=== PATIENT | female | born 1980 | race Caucasian/White ===

== ENCOUNTER 2021-07-15 14:26 | Emergency (ER) | payer OTHER, SELFPAY ==
--- NOTE | ~2021-07-15 | CT_ITS ---
EXAMINATION: CT abdomen pelvis w con EXAM DATE: 07/15/2021 16:20 INDICATION: Epigastric pain . TECHNIQUE: Spiral CT of the abdomen and pelvis was performed following intravenous injection of 100 m L Omnipaque 350. Axial, coronal and sagittal images of the abdomen and pelvis were reviewed. The do se-length product (DLP) for this examination was 399.40 mGy-cm. The exposure was tailored according to patient size (auto mA exposure control), and iterative reconstruction (ASIR) was used as additiona l dose reduction technique. There is no prior study for comparison. FINDINGS: The liver, spleen, adrenal glands and pancreas are unremarkable. Gallbladder is unremarkab le. No biliary obstruction. Portal and splenic veins are patent. Kidneys enhance symmetrically. T here is no hydronephrosis. The uterus is anteverted and morphologically normal. The bladder is un remarkable. There is no retroperitoneal or pelvic lymphadenopathy. There is mild scattered arterio sclerotic disease. The appendix is normal. The stomach and small bowel are unremarkable. There is expected amount of c olonic stool. No free intraperitoneal gas. The heart is normal in size. There are no pericardial or pleural effusions. The lung bases are unremarkable. There are no osteoblastic or osteolytic les ions identified. IMPRESSION: 1. No acute intra-abdominal findings. Reviewed, dictated and finalized at location G.
[2021-07-15 14:42] VITALS: BP 140/95; PULSE 91; RESP 18; TEMP 36.1; O2SAT 100
[2021-07-15 15:00] LABS: Glucose Point of Care 149 mg/dl (65-105)
[2021-07-15] MEDS: ONDANSETRON INJ 4 MG/2 ML VIAL 8 MG (15:04)
[2021-07-15] MEDS: SODIUM CHLORIDE 0.9% IV 2,000 ML 999 ML (15:04)
[2021-07-15] MEDS: HYDROmorphone HCL INJ (*CRX) 1 MG/ML SYR 0.5 MG IV PUSH ×2 (15:21→16:59)
--- NOTE | 2021-07-15 15:21 | ED.ABDPAIN ---
HPI - Abdominal Pain General Chief Complaint: Abdominal Pain Stated Complaint: abd pain Time Seen by Provider: 07/15/21 15:03 Source: patient and old records reviewed Mode of arrival: ambulatory Limitations: no limitations History of Present Illness HPI narrative: Patient is 40 years old white female drove herself to the emergency room because of severe pain in the epigastric area associated with nausea dry heaves and vomiting. Patient feels like she needs to have a bowel movement, went to the bathroom, sat on the toilet, started feeling lightheadedness, dizziness, diaphoresis, nausea and vomiting. Patient does not take medication at home except for anxiety and depression. Denies smoking, drinking or using drugs. Related Data Allergies Allergy/AdvReac Type Severity Reaction Status Date / Time No Known Allergies Allergy Unverified 05/25/18 16:10 Review of Systems Review of Systems: CONSTITUTIONAL: Denies fever, chills, or sweats. EYES: Denies visual changes, redness, or discharge. ENT: Denies rhinorrhea, congestion, sore throat, or otalgia. CARDIOVASCULAR: Denies chest pain, palpitations, or edema. RESPIRATORY: Denies cough or dyspnea. GASTROINTESTINAL: Denies abdominal pain, nausea, vomiting, or diarrhea. GENITOURINARY: Denies dysuria or hematuria. SKIN: Denies rash or itching. MUSCULOSKELETAL: Denies back pain, joint pain, or myalgia. NEUROLOGIC: Denies headache, numbness, or weakness. PSYCHIATRIC: Denies anxiety or depression. Exam Narrative: General appearance: Well-developed, well-nourished, restless, in pain with violent dry heave Skin: Diaphoretic r Head: Normocephalic, nontraumatic Eyes: Clear conjunctiva ENT: Oropharynx normal, ears normal, nose normal Neck: Supple, nontender Chest and respiratory: Airway patent, no respiratory distress, no accessory muscle use Heart: Regular rate/rhythm Abdomen: Soft, moderate tenderness right lower quadrant and severe tenderness epigastric area and right upper quadrant, no organomegaly, quiet bowel sounds Vascular: Normal peripheral pulses, normal capillary refill. Musculoskeletal: Normal range of motion, nontender back Neurologic: Alert and oriented ?3, AUTO CLAIM REPRESENTATIVE is normal as tested, no gross motor deficit Course Vital Signs Vital signs: Vital Signs Temperature 36.1 C L 07/15/21 14:42 Pulse Rate 91 07/15/21 14:42 Respiratory Rate 18 07/15/21 14:42 Blood Pressure 140/95 H 07/15/21 14:42 Pulse Oximetry 100 07/15/21 14:42 Temperature 36.1 C L 07/15/21 14:42 Pulse Rate 91 07/15/21 14:42 Respiratory Rate 18 07/15/21 14:42 Blood Pressure 140/95 H 07/15/21 14:42 Pulse Oximetry 100 07/15/21 14:42 MDM - Abdominal Pain Lab Data Result diagrams: 07/15/21 15:14 07/15/21 15:14 Labs: Lab Results 07/15/21 07/15/21 07/15/21 Range/Units 14:57 15:14 15:14 WBC 7.3 (4.5-10.0) K/mm3 RBC 4.74 (4.2-5.4) M/mm3 Hgb 14.8 (12.0-15.0) g/dL Hct 43.9 (37.0-47.0) % MCV 92.6 (80-100) fl MCH 31.2 (26-34) pg MCHC 33.7 (32-36) g/dl RDW 12.0 (11.5-14.5) % Plt Count 241 (150-375) k/mm3 MPV 12.2 H (7.4-10.4) fl Immature Gran % (Auto) 0.1 (0-0.5) % Neut % (Auto) 61.4 (45.5-73.1) % Lymph % (Auto) 30.2 (18.3-44.2) % Yancey % (Auto) 7.5 (2.6-8.5) % Eos % (Auto) 0.5 (0-4.4) % Baso % (Auto) 0.3 (0.2-1.2) % Lymph # (Auto) 2.21 (0.9-3.2) K/mm3 Yancey # (Auto) 0.6 (0.1-0.6) K/mm3 Eos # (Auto) 0.0 (0-0.3) K/mm3 Baso # (Auto) 0.0 (0.0-0.1) K/mm3 Abs Immat Gran (auto) 0.01 (0.00-0.031) K/mm3 Absolute Neuts (auto) 4.5 (1.3-6.7) K/mm3 Absolute Nucleated RBC 0.0 (0.
[2021-07-15] MEDS: diphenhydrAMINE HCl INJ 50 MG/ML VIAL 25 MG IV PUSH (15:24)
[2021-07-15] MEDS: METOCLOPRAMIDE HCL INJ 10 MG/2 ML VIAL IV PUSH (15:24)
--- NOTE | 2021-07-15 15:31 | PC.NURSE ---
pt appears more comfortable at this time. States she has relief of s/s.
[2021-07-15 15:36] LABS: Basophils Percent Auto 0.3 % (0.2-1.2); Eosinophils Percent Auto 0.5 % (0-4.4); Hematocrit 43.9 % (37.0-47.0); Hemoglobin 14.8 g/dL (12.0-15.0); Immature Granulocyte Absolute 0.01 K/mm3 (0.00-0.031); Immature Granulocyte Percent A 0.1 % (0-0.5); Lymphocytes Absolute Auto 2.21 K/mm3 (0.9-3.2); Lymphocytes Percent Auto 30.2 % (18.3-44.2); Mean Corpuscular HGB Conc 33.7 g/dl (32-36); Mean Corpuscular Hemoglobin 31.2 pg (26-34); Mean Corpuscular Volume 92.6 fl (80-100); Mean Platelet Volume 12.2 fl (7.4-10.4); Monocytes Absolute Auto 0.6 K/mm3 (0.1-0.6); Monocytes Percent Auto 7.5 % (2.6-8.5); Neutrophils Absolute Auto 4.5 K/mm3 (1.3-6.7); Neutrophils Percent Auto 61.4 % (45.5-73.1); Platelet Count Result 241 k/mm3 (150-375); Red Blood Count 4.74 M/mm3 (4.2-5.4); White Blood Count 7.3 K/mm3 (4.5-10.0)
[2021-07-15 15:49] LABS: Alanine Aminotransferase 23 U/L (4-35); Albumin Level 4.8 g/dL (3.5-5.1); Alkaline Phosphatase 52 U/L (38-126); Anion Gap 14 mmol/L (8-16); Aspartate Amino Transferase 29 U/L (14-36); Bilirubin,Total 0.4 mg/dL (0.2-1.3); Blood Urea Nitrogen 9 mg/dL (7-17); Calcium 9.5 mg/dL (8.4-10.2); Carbon Dioxide 17 mmol/L (22-30); Chloride 109 mmol/L (98-107); Estimated CRCL calculation 78 ml/min; Estimated Glomerular Filt Rate > 60; Glucose 165 mg/dL (65-110); Lipase 238 U/L (23-300); Potassium 3.9 mmol/L (3.4-5.0); Sodium 140 mmol/L (137-145)
[2021-07-15 16:09] LABS: SPREG INTERNAL CONTROL Positive; Serum Qual hCG Negative
[2021-07-15 17:04] VITALS: BP 158/88; PULSE 74; RESP 18; O2SAT 98
[2021-07-15 17:28] LABS: Add Urine Microscopic? YES; Appearance Urine Clear (Clear); Bilirubin Urine Negative (Negative); Blood Urine Negative (Negative); Color Urine Straw (Yellow); Glucose Urine UA Negative (Negative); Ketones Urine Trace mg/dL (Negative); Leukocyte Esterase Ur Negative LEU/UL (Negative); Mucus Urine Rare /lpf; Nitrate Urine Negative (Negative); Protein Urine Negative (Negative); RBC Urine 0-2 /hpf (0-2); Squamous Epithelial Cell Urine Few /hpf (Few); Urobilinogen Urine Negative mg/dL (<2.0); WBC Urine 0-3 /hpf
[2021-07-15 17:29] LABS: Specific Grav Ur 1.035 (1.001-1.035)
[2021-07-15 17:30] VITALS: BP 166/96; PULSE 76; RESP 20; O2SAT 99
[2021-07-15 17:42] VITALS: BP 132/78; PULSE 78; RESP 18; O2SAT 98
== END 2021-07-15 17:30 | disposition home or self-care (01) ==
PROVIDERS: Emergency Provider Emergency Medicine; PCP Internal Medicine
DX: R10.13 Epigastric pain (principal)
CPT/HCPCS: 36415; 74177; 80053; 81001; 82948; 83690; 84703; 85025; 96361; 96374; 96375; 96376; 99285; J1170; J1200; J2405; J2765; J7030; Q9967

== ENCOUNTER 2021-07-15 22:34 | Emergency (ER) | payer OTHER, SELFPAY ==
[2021-07-15 22:37] VITALS: BP 114/77; PULSE 97; RESP 18; TEMP 36.8; O2SAT 97
--- NOTE | 2021-07-15 22:46 | PC.NURSE ---
pt left before being seen by provider at this time. pt states we're gonna just go now.
== END 2021-07-15 23:03 | disposition left against medical advice (07) ==
LOC: ANHED 22:50
PROVIDERS: PCP Internal Medicine
DX: R10.10 Upper abdominal pain, unspecified (principal)
CPT/HCPCS: 99199

== ENCOUNTER 2023-05-13 12:08 | Emergency (ER) | payer OTHER, SELFPAY ==
--- NOTE | ~2023-05-13 | US_ITS ---
EXAMINATION: US pelvic complete DATE: 05/13/2023 16:17 INDICATION: Right lower quadrant pain TECHNIQUE: Multiple transabdominal and endovaginal sonographic images of the pelvis were obtained. COMPARISON: CT from today FINDINGS: The uterus is surgically absent. The right ovary measures 2.2 x 1.8 x 2.0 cm. The left ovar y measures 2.4 x 1.2 x 1.6 cm. There is normal vascular flow in the ovaries. There is no free fluid i n the pelvis. IMPRESSION: 1. No sonographic correlate for the patient's symptoms. Reviewed, dictated and finalized at location F. TECHNIC ASSEMBLER
--- NOTE | ~2023-05-13 | CT_ITS ---
EXAMINATION: CT abdomen pelvis w con DATE: 05/13/2023 15:43 INDICATION: Right lower quadrant abdominal pain and dyspareunia TECHNIQUE: Computed tomography (CT) of the abdomen and pelvis was performed with 100 mL Omnipaque-350 intravenous contrast. Automated exposure control and iterative reconstruction technique were employe d. The dose-length product was 294.73 mGy-cm. COMPARISON: 07/15/2021 FINDINGS: Lung bases are clear. Heart size is normal. No pericardial or pleural effusion. Liver, gallbladder, s pleen, pancreas, bilateral adrenal glands and kidneys are normal. Bladder is normal. The uterus is no t identified and has likely been surgically resected. There is a small amount of free intraperitoneal gas scattered throughout the nondependent abdomen. There is additional small amount of extraluminal gas with dependently in the deep pelvis situated in the fat between the vaginal cuff and the sigmoid colon which suggests this is the origin of the gas most likely related to a perforated sigmoid divert iculitis. There is a minimal amount of stranding in the adjacent fat and a minimal amount of nonlocul ated free fluid in the deep pelvis. No abscess. No bowel obstruction. Normal appendix. No pathologica lly enlarged abdominal or pelvic lymphadenopathy. Bones are unremarkable. IMPRESSION: 1. Small amount of free intraperitoneal gas scattered throughout the abdomen and pelvis with distribu tion suggesting an origin in the deep pelvis likely related to sigmoid diverticulitis. No abscess. Reviewed, dictated and finalized at location A. KAY MACHINE OPERATOR IMPRESSION: 1. Small amount of free intraperitoneal gas scattered throughout the abdomen an d pelvis with distribution suggesting an origin in the deep pelvis likely relat ed to sigmoid diverticulitis. No abscess.
[2023-05-13 12:11] VITALS: BP 151/79; PULSE 74; RESP 20; TEMP 36.6; O2SAT 100
[2023-05-13 14:40] VITALS: BP 116/64; PULSE 88; RESP 18; TEMP 36.5; O2SAT 98
--- NOTE | 2023-05-13 14:52 | ECG_ITS ---
Measurements Intervals [place] Rate: 84 P: -32 ID: [id number] QRS: 73 QRSD: 95 T: 27 QT: 393 QTc: 465 Interpretive Statements SINUS RHYTHM BASELINE ARTIFACT- I, III, AVR, AVL, AVF NORMAL ECG NO PREVIOUS ECG AVAILABLE FOR COMPARISON Electronically Signed On 05-13-2023 14:57:54 SEXUAL ASSAULT SOCIAL WORKER by Honorio Adams D.O.
--- NOTE | 2023-05-13 14:54 | PC.NURSE ---
1435 Pt called out with intense pain, heart racing, nausea and vomiting. VS and EKG obtained, IV access and blood drawn. Dr. Huerta notified of pt condition and recent change in pain. VO received.
[2023-05-13 14:57] LABS: Basophils Percent Auto 0.1 % (0.2-1.2); Hematocrit 43.6 % (37.0-47.0); Hemoglobin 14.9 g/dL (12.0-15.0); Immature Granulocyte Absolute 0.03 K/mm3 (0.00-0.031); Immature Granulocyte Percent A 0.2 % (0-0.5); Lymphocytes Absolute Auto 1.08 K/mm3 (0.9-3.2); Lymphocytes Percent Auto 7.7 % (18.3-44.2); Mean Corpuscular HGB Conc 34.2 g/dl (32-36); Mean Corpuscular Hemoglobin 30.9 pg (26-34); Mean Corpuscular Volume 90.5 fl (80-100); Mean Platelet Volume 11.1 fl (7.4-10.4); Monocytes Absolute Auto 0.7 K/mm3 (0.1-0.6); Neutrophils Absolute Auto 12.2 K/mm3 (1.3-6.7); Platelet Count Result 247 k/mm3 (150-375); Red Blood Count 4.82 M/mm3 (4.2-5.4); Red Cell Distribution Width 11.8 % (11.5-14.5)
[2023-05-13] MEDS: SODIUM CHLORIDE 0.9% IV 1,000 ML 999 ML IV CONT (15:02)
[2023-05-13] MEDS: MORPHINE SULFATE (*CRX) 4 MG/ML INJ IV PUSH (15:03)
[2023-05-13] MEDS: ONDANSETRON INJ 4 MG/2 ML VIAL IV PUSH (15:03)
[2023-05-13 15:09] LABS: Alanine Aminotransferase 25 U/L (6-35); Albumin Level 4.5 g/dL (3.5-5.1); Alkaline Phosphatase 72 U/L (38-126); Anion Gap 13 mmol/L (8-16); Aspartate Amino Transferase 30 U/L (14-36); Bilirubin,Total 0.5 mg/dL (0.2-1.3); Blood Urea Nitrogen 14 mg/dL (7-17); Calcium 9.3 mg/dL (8.4-10.2); Carbon Dioxide 21 mmol/L (22-30); Chloride 105 mmol/L (98-107); Estimated CRCL calculation 73 ml/min; Estimated Glomerular Filt Rate > 60; Glucose 136 mg/dL (65-110); Potassium 3.6 mmol/L (3.4-5.0); Sodium 139 mmol/L (137-145)
--- NOTE | 2023-05-13 15:24 | ED.GENADULT ---
HPI - General Adult General Chief complaint: Abdominal Pain Stated complaint: abd pain after intercourse/vaginal bleeding Time Seen by Provider: 05/13/23 15:03 Source: patient Mode of arrival: ambulatory Limitations: no limitations History of Present Illness HPI narrative: This is a 42-year-old female who presents to the ED with chief complaint of right lower abdominal pain beginning earlier this morning. Reports that she had intercourse around 11:00 a.m. and subsequently had vaginal bleeding. Reports pain during intercourse. After that she started to have the abdominal / groin pain. Reports vomiting several times as well. She states that she had a laparoscopic hysterectomy in January and is unsure if this is related today. She reports that she has the shakes currently But is unsure of fevers. Patient states she was feeling fine prior to this event today. Denies back pain, flank pain, urinary symptoms, problems with bowel movements, chest pain or shortness of breath. Denies any concern for STD. Related Data Allergies Allergy/AdvReac Type Severity Reaction Status Date / Time No Known Allergies Allergy Verified 05/13/23 12:09 Review of Systems Review of Systems: All systems as dictated in HPI Exam Narrative: GENERAL: Well-appearing, well-nourished, and in no acute distress. HEAD: Normocephalic, atraumatic. EYES: PERRLA and EOMI. ENT: Nares clear, no rhinorrhea or epistaxis. Mucous membranes moist. Oropharynx without tonsillar hypertrophy exudate or other lesions. NECK: Supple. No adenopathy or masses. CHEST: No respiratory distress. Clear to auscultation. No wheezes rales or rhonchi HEART: Regular rate and rhythm. No murmur heard. Normal peripheral pulses. ABDOMEN: Generalized tenderness present. No flank tenderness bilaterally. Soft, nondistended, normal active bowel sounds. MSK: Normal range of motion. No edema. SKIN: Warm, dry, no rash. NEURO: Alert and oriented x3. No focal deficits. PSYCH: Normal mood and affect. Course Course Emergency Course: Consult general surgery, Dr. Lazo: he is agreeable to consult if she is admitted for diverticulitis. He is suspicious that there may be a possible vaginal cuff injury and would like me to speak with OB. Consult OBGYN ([facility]): they recommend to do a pelvic exam to check for any Defect in the vaginal wall. If there is a defect in 1 week here take her they will be happy to take care of the patient. Re-evaluated the patient. Pelvic exam performed with female nurse tech charter boat captain present. In no defect in the vaginal wall seen on speculum exam. No defect palpated. No blood visualized. No discharge. Low concern for vaginal cuff injury. Vital Signs Vital signs: Vital Signs Temperature 98 F 05/13/23 12:11 Pulse Rate 74 05/13/23 12:11 Respiratory Rate 20 05/13/23 12:11 Blood Pressure 151/79 H 05/13/23 12:11 Pulse Oximetry 100 05/13/23 12:11 Oxygen Delivery Room Air 05/13/23 12:11 Temperature 97.6 F 05/13/23 17:51 Pulse Rate 90 05/13/23 17:51 Respiratory Rate 16 05/13/23 17:51 Blood Pressure 126/58 L 05/13/23 17:51 Pulse Oximetry 100 05/13/23 17:51 Oxygen Delivery Room Air 05/13/23 12:11 Medical Decision Making [facility] Narrative Medical decision making narrative: This is a 42-year-old female who presents to the ED with chief complaint of right lower quadrant abdominal pain that started shortly after sexual intercourse. She did have hysterectomy 3 months ago. Vitals are normal. Exam shows right lower quadrant tenderness. Pelvic exam reveals a well-appearing vaginal wall With no evidence of any defect or bleeding. Lab work shows of slightly elevated white count of 14. CMP unremarkable. Urinalysis shows slight dehydration but otherwise normal. Pelvic ultrasound is normal. CT abdomen and pelvis with IV contrast:1. Small amount of free intraperitoneal gas scattered throughout the abdome
[2023-05-13] MEDS: METOCLOPRAMIDE HCL INJ 10 MG/2 ML VIAL IV PUSH (16:30)
[2023-05-13] MEDS: metroNIDAZOLE 500 MG/ISO 100ML 500 MG/100 ML BAG 100 MG IVPB (17:02)
[2023-05-13] MEDS: PROMETHAZINE HCL 25 MG/ML AMPUL 12.5 MG IV PUSH (17:02)
[2023-05-13 17:13] LABS: Appearance Urine Clear (Clear); Bilirubin Urine Negative (Negative); Blood Urine Negative (Negative); Color Urine Yellow (Yellow); Glucose Urine UA Negative (Negative); Ketones Urine 1+ mg/dL (Negative); Leukocyte Esterase Ur Negative LEU/UL (Negative); Nitrate Urine Negative (Negative); Protein Urine Negative (Negative); Urobilinogen Urine 0.2 mg/dL (<2.0); pH Urine 8.5 (5.0-9.0)
[2023-05-13 17:14] LABS: Add Urine Microscopic? NO; Specific Grav Ur 1.047 (1.001-1.035)
[2023-05-13] MEDS: diphenhydrAMINE HCl INJ 50 MG/ML VIAL 25 MG IV PUSH (17:50)
[2023-05-13 17:51] VITALS: BP 126/58; PULSE 90; RESP 16; TEMP 36.4; O2SAT 100
== END 2023-05-13 19:34 | disposition home or self-care (01) ==
PROVIDERS: Emergency Medicine; Emergency Provider Physician Assistant; PCP Internal Medicine
DX: K57.32 Diverticulitis of large intestine without perforation or abscess without bleeding (principal)
CPT/HCPCS: 36415; 74177; 76856; 80053; 81003; 85025; 86850; 86900; 86901; 93005; 96361; 96365; 96368; 96375; 99284; 99285; J0696; J1200; J1836; J2270; J2405; J2550; J2765; J7030; Q9967

== ENCOUNTER 2023-06-12 05:40 | Emergency (ER) | payer OTHER, SELFPAY ==
[2023-06-12] VITALS (29 sets, daily range): BP systolic 103–185; BP diastolic 50–164; PULSE 84–106; RESP 12–27; TEMP 36.6–37.2; O2SAT 95–100
--- NOTE | ~2023-06-12 | CT_ITS ---
EXAMINATION: CTA abdomen pelvis DATE: 06/12/2023 07:11 INDICATION: Abdominal pain TECHNIQUE: Computed tomographic angiography (CTA) of the abdomen and pelvis was performed with 100 mL Omnipaque-350 intravenous contrast. Additional 3D reconstructions utilizing rotating maximum intensi ty projection (MIP) were performed. Automated exposure control and iterative reconstruction technique were employed. The dose-length product was 325.39 mGy-cm. COMPARISON: 05/13/2023 FINDINGS: Lung bases are clear. Heart size is normal. No pericardial or pleural effusion. Liver, gallbladder, s pleen, pancreas, bilateral adrenal glands and kidneys are normal. Bowels including the appendix are n ormal. Prominent distention of the fluid-filled stomach. Bladder is normal. The uterus is not identif ied and has likely been surgically resected. No abscess or free intraperitoneal gas or fluid. No path ologically enlarged or pelvic lymphadenopathy. Abdominal aorta and bilateral iliac arteries are jairo l in caliber with small amount of nonhemodynamically significant atherosclerotic plaque in the infrar enal aorta. No dissection. Normal anatomic variant separate origins of the splenic and common hepatic arteries arising directly from the aorta. Bones are unremarkable. IMPRESSION: 1. Atypically large amount of fluid in the stomach. Correlate clinically. No other acute intra-abdomi nal/pelvic process. Reviewed, dictated and finalized at location A. SIOLOGIST IMPRESSION: 1. Atypically large amount of fluid in the stomach. Correlate clinically. No ot her acute intra-abdominal/pelvic process.
--- NOTE | 2023-06-12 05:56 | ECG_ITS ---
Measurements Intervals [place] Rate: 95 P: -23 OR: 163 QRS: 73 QRSD: 90 T: 42 QT: 376 QTc: 474 Interpretive Statements SINUS RHYTHM NORMAL ECG COMPARED TO ECG 05/13/2023 14:40:01 NO SIGNIFICANT CHANGES Electronically Signed On 06-12-2023 8:12:31 SIGN FABRICATOR by Sandor Villarreal M.D.
[2023-06-12] MEDS: SODIUM CHLORIDE 0.9% IV 1,000 ML 999 ML IV CONT ×2 (06:11→06:35)
[2023-06-12 06:12] LABS: Basophils Percent Auto 0.2 % (0.2-1.2); Hematocrit 46.1 % (37.0-47.0); Hemoglobin 15.6 g/dL (12.0-15.0); Immature Granulocyte Absolute 0.05 K/mm3 (0.00-0.031); Immature Granulocyte Percent A 0.4 % (0-0.5); Lymphocytes Absolute Auto 0.22 K/mm3 (0.9-3.2); Lymphocytes Percent Auto 1.7 % (18.3-44.2); Mean Corpuscular HGB Conc 33.8 g/dl (32-36); Mean Corpuscular Hemoglobin 31.1 pg (26-34); Mean Platelet Volume 11.5 fl (7.4-10.4); Monocytes Absolute Auto 0.5 K/mm3 (0.1-0.6); Monocytes Percent Auto 3.6 % (2.6-8.5); Neutrophils Absolute Auto 12.5 K/mm3 (1.3-6.7); Neutrophils Percent Auto 94.1 % (45.5-73.1); Platelet Count Result 213 k/mm3 (150-375); Red Blood Count 5.01 M/mm3 (4.2-5.4); Red Cell Distribution Width 11.7 % (11.5-14.5); White Blood Count 13.3 K/mm3 (4.5-10.0)
[2023-06-12] MEDS: ONDANSETRON INJ 4 MG/2 ML VIAL IV PUSH ×3 (06:12→07:30)
[2023-06-12 06:21] LABS: Appearance Urine Clear (Clear); Bacteria Urine None Seen /hpf; Bilirubin Urine Negative (Negative); Blood Urine Negative (Negative); Color Urine Yellow (Yellow); Glucose Urine UA 1+ mg/dL (Negative); Ketones Urine Trace mg/dL (Negative); Leukocyte Esterase Ur Negative LEU/UL (Negative); Nitrate Urine Negative (Negative); Non Pathogenic Casts 0-2; Protein Urine Trace mg/dL (Negative); RBC Urine 0-2 /hpf (0-2); Specific Grav Ur 1.023 (1.001-1.035); Squamous Epithelial Cell Urine None seen /hpf (Few); Urobilinogen Urine 0.2 mg/dL (<2.0); WBC Urine 0-5 /hpf; pH Urine 8.5 (5.0-9.0)
[2023-06-12 06:23] LABS: Lactic Acid Reflex 5.9 mmol/L (0.7-2.0)
[2023-06-12 06:48] LABS: Influenza A QL RT-PCR Negative (Negative); Influenza B QL RT-PCR Negative (Negative); RSV RNA, RT-PCR Negative (Negative); SARS-CoV-2 RNA PCR Negative (Negative)
[2023-06-12] MEDS: FAMOTIDINE 20 MG/2 ML VIAL IV PUSH (06:52)
[2023-06-12] MEDS: DICYCLOMINE HCL INJ 20 MG/2 ML VIAL IM (06:54)
[2023-06-12 07:01] LABS: SPREG INTERNAL CONTROL Positive; Serum Qual hCG Negative
--- NOTE | 2023-06-12 07:03 | ED.ABDPAIN ---
HPI - Abdominal Pain General Chief Complaint: Abdominal Pain Stated Complaint: abd pain, N/V/D Time Seen by Provider: 06/12/23 07:00 History of Present Illness HPI narrative: This is a 42-year-old female, with no significant past medical history, presenting to Emergency Department complaining of severe epigastric abdominal pain for the past 2 days. The patient states she was recently exposed to her son who had a suspected viral illness with vomiting and fever. She states she has vomited multiple times without blood and had multiple episodes of nonbloody diarrhea. She describes the pain as sharp, rated 10/10 without radiation. Related Data Allergies Allergy/AdvReac Type Severity Reaction Status Date / Time No Known Allergies Allergy Verified 05/13/23 12:09 Review of Systems Review of Systems: CONSTITUTIONAL: Subjective fevers and chillsDenies fever, chills, or sweats. CARDIOVASCULAR: Denies chest pain, palpitations, or edema. RESPIRATORY: Denies cough or dyspnea. GASTROINTESTINAL: epigastric abdominal pain, nausea, nonbloody vomiting and diarrhea GENITOURINARY: Denies dysuria or hematuria. SKIN: Denies rash or itching. MUSCULOSKELETAL: Denies back pain, joint pain, or myalgia. NEUROLOGIC: Denies headache, numbness, dizziness, or weakness. PSYCHIATRIC: Denies anxiety or depression. PMFSH Past Medical History Medical History No significant past medical history Surgical History Surgical History History of hysterectomy Social History Social History Smoking status: Never smoker Alcohol intake: never Substance use: never Exam Narrative: GENERAL: Well-developed, well-nourished, and in moderate distress due to pain HEAD: Normocephalic, atraumatic. EYES: PERRLA and EOMI. ENT: Mucous membranes moist. Oropharynx without tonsillar hypertrophy exudate or other lesions. CHEST: Clear to auscultation. No respiratory distress. No wheezes rales or rhonchi HEART: Tachycardic with regular rhythm. No murmur heard. Normal peripheral pulses. ABDOMEN: Soft, tender palpation in the epigastrium, without rebound no active cardiac, nondistended, normal active bowel sounds. EXTREMITIES: Normal range of motion. No edema. SKIN: Warm, dry, no rash. NEURO: Alert and oriented x3. No focal deficit. Moving all 4 limbs spontaneously PSYCH: Normal mood and affect. Course Course Emergency Course: 07:23 - Given the patient's elevated white blood cell count, elevated lactic acid in developing tachycardia on the monitor, will obtain cultures and give Zosyn for possible sepsis of intra-abdominal origin. 08:20 - CTA abdomen pelvis is not concerning for vascular occlusion or obvious ischemic changes, though does show a significantly distended stomach. Despite antiemetics, the patient continues to vomit. Will repeat lactic acid of plan for admission for intractable vomiting. The patient is comfortable with this plan. 09:45 - Repeat lactic acid improved to 2.7 after 3 L of IV fluids. I discussed the patient with hospitalist, Dr. Leigh accepts admission for observation requests and G-tube placement. 10:20 - When NG was discussed with the patient, she states she felt improved and wished to be discharged. Dr. Leigh was informed of the patient's change. Will discharge. Discussed return and emergency precautions including signs/symptoms of acute abdomen and intractable vomiting. The patient voiced understanding and is comfortable with the plan. All questions answered to her satisfaction. Vital Signs Vital signs: Vital Signs Temperature 98.3 F 06/12/23 05:41 Pulse Rate 97 06/12/23 05:41 Respiratory Rate 22 H 06/12/23 05:41 Blood Pressure 136/72 06/12/23 05:41 Pulse Oximetry 100 06/12/23 05:41 Oxygen Delivery Room Air 06/12/23 05:41 Temperature 9
[2023-06-12 07:07] LABS: CRP 0.8 mg/dL (<1.0); Magnesium 1.7 mg/dL (1.6-2.3)
[2023-06-12 07:10] LABS: Troponin I < 0.012 ng/mL (0.000-0.034)
[2023-06-12 07:13] LABS: Estimated CRCL calculation 99 ml/min; Estimated Glomerular Filt Rate > 60
[2023-06-12 07:14] LABS: Anion Gap 16 mmol/L (8-16); Aspartate Amino Transferase 38 U/L (14-36); Bilirubin,Total 0.9 mg/dL (0.2-1.3); Blood Urea Nitrogen 13 mg/dL (7-17); Calcium 8.7 mg/dL (8.4-10.2); Carbon Dioxide 15 mmol/L (22-30); Chloride 105 mmol/L (98-107); Estimated CRCL calculation 84 ml/min; Estimated Glomerular Filt Rate > 60; Glucose 191 mg/dL (65-110); Potassium 3.9 mmol/L (3.4-5.0); Sodium 136 mmol/L (137-145)
[2023-06-12 07:15] LABS: Alanine Aminotransferase 56 U/L (6-35); Albumin Level 4.5 g/dL (3.5-5.1); Alkaline Phosphatase 46 U/L (38-126); Total Protein 7.1 g/dL (6.3-8.2)
[2023-06-12 07:23] LABS: Add Urine Microscopic? YES
[2023-06-12 07:24] LABS: Lipase 55 U/L (23-300)
[2023-06-12] MEDS: MORPHINE SULFATE (*CRX) 4 MG/ML INJ IV PUSH (07:29)
[2023-06-12] MEDS: SODIUM CHLORIDE 0.9% IV 2,000 ML 999 ML IV CONT (07:30)
[2023-06-12] MEDS: PIPERACILLN/TAZ 3.375GM/NS50ML 3.375 GM/50 ML BAG IVPB (07:30)
[2023-06-12] MEDS: diphenhydrAMINE HCl INJ 50 MG/ML VIAL 25 MG IV PUSH (08:45)
[2023-06-12] MEDS: PROCHLORPERAZINE EDISYLATE 10 MG/2 ML VIAL IV PUSH (08:46)
[2023-06-12 08:51] LABS: Lactic Acid Reflex 2.7 mmol/L (0.7-2.0)
[2023-06-12 09:09] LABS: Reflex Lactic Acid Yes or No Add Lactic
[2023-06-12 10:19] LABS: Lactic Acid Reflex 2.5 mmol/L (0.7-2.0)
--- NOTE | 2023-06-12 10:19 | PC.NURSE ---
Pt refused NG tube said she is feeling better, denies nausea and is requesting to be DC.
[2023-06-12 10:20] LABS: Lactic Acid 2.5 mmol/L (0.7-2.0)
== END 2023-06-12 10:53 | disposition home or self-care (01) ==
LOC: ANHED 09:46 → ANH3MEDSUR 10:16 → ANHED 10:34
PROVIDERS: Student in an Organized Health Care Education/Training Program; Emergency Provider Preventive Medicine Aerospace Medicine; PCP Internal Medicine
DX: R10.13 Epigastric pain (principal); E87.20 Acidosis, unspecified; E86.0 Dehydration; R11.2 Nausea with vomiting, unspecified; Z20.822 Contact with and (suspected) exposure to COVID-19; Z90.710 Acquired absence of both cervix and uterus
CPT/HCPCS: 36415; 74174; 80053; 81001; 81025; 83605; 83690; 83735; 84484; 84703; 85025; 86140; 87040; 87637; 93005; 96361; 96365; 96372; 96375; 96376; 99284; J0500; J0780; J1200; J2270; J2405; J2543; J7030; Q9967